=== PATIENT | male | born 1960 | race African-American/Black ===

== ENCOUNTER 2020-01-20 13:27 | Observation (INO) | payer SELFPAY ==
[2020-01-20 14:57] LABS: Troponin I Less than 0.010 ng/mL (< 0.028)
--- NOTE | 2020-01-20 16:06 | HP ---
PRIMARY CARE PHYSICIAN: Homer Rosario. CHIEF COMPLAINT: Chest pain and neck pain. HISTORY OF PRESENT ILLNESS: This is a 59-year-old male, who presented to the [facility] emergency room for chest pain. The patient reports that he initially had some neck pain started about a month ago. Last, over the few days, he could not move his neck or twisted and then it got better. He had no more symptoms until about 2 days ago. The patient on Sunday morning was smoking some crack. After coming down off the crack, he developed severe neck pain, bilateral, worse in the back than in the front, could not turn his head or moves in any direction at all. This was associated with left-sided chest pain. He had difficulty describing the type of pain but was persistent, constant, perhaps pressure in nature, did not radiate anywhere but covered the entire left side of his chest. It lasted all weekend and then resolved Sunday. He had lots of burping, but no nausea or vomiting with it. He did not have any diaphoresis. No shortness of breath. He did have some diarrhea over the weekend as well. The patient went into the emergency room today. His vital signs were stable. His EKG was normal and his troponins were negative. However, given his age, lack of previous healthcare and his cocaine abuse, he was transferred over here for observation and to risk stratify him. The patient denies any active chest pain right now, just the neck pain with any sort of movement. He also has a hard time lying down as this tends to make the neck pain worse as well. REVIEW OF SYSTEMS: CONSTITUTIONAL: No fevers. No chills. EYES: No double vision or blurred vision. ENT: He does have a little bit of runny nose, but no congestion. No sore throat. CARDIOVASCULAR: See HPI. No palpitations or racing heart. PULMONARY: No coughing, wheezing, or shortness of breath. GASTROINTESTINAL: He had burping, but no nausea or vomiting. No constipation. He had some diarrheal stools over the weekend just a few of them. No blood or mucus in them. No abdominal pain. GENITOURINARY: No dysuria or hematuria. MUSCULOSKELETAL: The patient has chronic low back pain. He has had some back surgery before. No other acute problem besides his neck. SKIN: No rashes or other lesions noted. NEUROLOGIC: No numbness, tingling, or focal weakness. PAST MEDICAL HISTORY: None. PAST SURGICAL HISTORY: Low back surgery. SOCIAL HISTORY: The patient does not smoke tobacco. He does smoke crack cocaine regularly. He does drink alcohol, but just occasionally and not daily. FAMILY HISTORY: There is COPD on the maternal side. No family history of early heart disease. ALLERGIES: NO KNOWN DRUG ALLERGIES. MEDICATIONS: No current medications. PHYSICAL EXAMINATION: VITAL SIGNS: Blood pressure 115/74, pulse 87, respirations 17, temperature 98.4, O2 saturation 100% on room air. GENERAL: This is a well-developed, well-nourished male, in no acute distress. HEENT: Pupils are equal, round, and reactive to light. Oropharynx clear without lesions, erythema, or exudate. NECK: Neck is quite stiff due to pain. Tender to palpation in the lateral musculature, where it attaches to the base of the skull. The cervical spine that was nontender to palpation. No lymphadenopathy. No thyroid nodules or enlargement. HEART: Regular rate and rhythm. No murmurs, rubs, or gallops. LUNGS: Clear to auscultation bilaterally. No wheezes, crackles, or rhonchi. ABDOMEN: Soft, nontender to palpation. Normoactive bowel sounds. No hepatosplenomegaly or other masses. EXTREMITIES: No clubbing, cyanosis, or edema. SKIN: No rashes or other lesions noted. NEUROLOGIC: Intact strength and sensation in all extremities. No facial droop. PSYCHIATRIC: Alert and oriented x3. Normal mood and affect. LABORATORY DATA: Troponin negative now x3. CBC is notable for a hemoglobin of 12, hematocrit of 40. The rest was normal. Complete metabolic panel is notable for a sodium of 135 and glucose of 106. The rest was normal. EKG done in the emergency room shows normal sinus rhythm with no ectopic beats. No ST-segment changes or T-wave inversions. Normal EKG. IMAGING STUDIES: Chest x-ray, I did review the chest x-ray done in the emergency room along with the radiologist's report. There are some chronic lung changes that are stable and mild cardiomegaly. There is also some bibasilar atelectasis or scar. No acute changes. CT angiography of the neck done in the emergency room is unremarkable. There is no arterial stenosis or occlusion. No evidence of dissection. There is a diminutive proximal left internal jugular vein, which could be chronic or congenital. ASSESSMENT: 1. Chest pain in the setting of cocaine abuse, likely this is secondary to cocaine, but it may indicate some underlying coronary artery disease given his age. We will monitor him overnight on telemetry and will have to do a stress test in the morning. If this is negative, then he will be discharged home to follow up with primary care doctor. 2. Neck pain. The patient appears to have a cervical neck spasm. He does not remember any trauma. This is likely positional from either sleeping or from whatever happened while he was high on the cocaine. No evidence of trauma. The CT of the neck was fine. This will likely improve with conservative care with muscle relaxants, pain medications, and for prolonged period of time, he can follow up with a neck surgeon. 3. Cocaine abuse. I did awake overnight counselor the patient about the need to stop abusing cocaine. 4. Mild cardiomegaly on the chest x-ray. The patient might benefit from an echocardiogram that can be done as an outpatient. No evidence of congestive failure at this time. 5. Deep venous thrombosis prophylaxis. The patient on sequential compression devices while in bed and encourage ambulation. 6. Gastrointestinal prophylaxis. The patient on Pepcid twice a day. CODE STATUS: I did discuss this with the patient. He is a full code. Should he be incapacitated, he states that his son will be his medical decision maker. His name is Edwin Nogueran. Job ID: [id number]
[2020-01-20] MEDS ORDERED: Ondansetron ODT 4 MG TAB PO PRN (16:34)
[2020-01-20] MEDS ORDERED: Acetaminophen 650 MG Suppository PR PRN (16:34)
[2020-01-20] MEDS ORDERED: Ondansetron PF 4 MG/2 ML Vial IVP PRN (16:34)
[2020-01-20] MEDS ORDERED: Guaifenesin DM 100-10/5 ML UDCUP PO PRN (16:34)
[2020-01-20] MEDS ORDERED: Cyclobenzaprine 10 MG TAB PO PRN (16:34)
[2020-01-20] MEDS ORDERED: HYDROcodone/Acetaminophen 5/325 mg Tablet PO PRN ×2 (16:34)
[2020-01-20] MEDS ORDERED: Senokot S 8.6-50 MG TAB PO PRN (16:34)
[2020-01-20] MEDS ORDERED: Nitroglycerin 0.4 MG TAB (25 Tab Bottle) PO PRN (16:34)
[2020-01-20 16:44] VITALS: BMI 19.4
[2020-01-20] MEDS ORDERED: Aspirin 325 mg Enteric Coated Tablet PO SCH (17:30)
[2020-01-20] MEDS: Famotidine 20 MG TAB PO SCH (19:24)
[2020-01-21 05:19] LABS: #Eosinphils 0.3 thou/uL (0.0-0.7); #Lymphocytes 1.2 thou/uL (1.20-3.40); #Monocytes 0.7 thou/uL (0.11-0.59); #Neutrophils 3.2 thou/uL (1.40-6.50); %Basophils 0.7 % (0.0-1.0); %Eosinophils 5.1 % (0.0-10.0); %Lymphocytes 21.9 % (21.0-51.0); %Monocytes 12.8 % (0.0-10.0); %Neutrophils 59.5 % (42.0-75.0); Hemoglobin 12.8 g/dL (14.0-18.0); Mean Corpuscular HGB CONC 32.7 g/dL (32.0-36.0); Mean Corpuscular Hemoglobin 31.4 pg (27.0-31.0); Mean Platelet Volume 8.5 fL (7.4-10.4); Platelet Count 184 thou/uL (130-400); RBC Distribution Width 11.9 % (11.5-14.5); Red Blood Cell (RBC) Count 4.07 mill/uL (4.70-6.10); White Blood Cell (WBC) Count 5.3 thou/uL (4.8-10.8)
[2020-01-21 05:43] LABS: Anion Gap 11 mmol/L (10-20); BUN (Urea Nitrogen) 14 mg/dL (8.4-25.7); Calc. Creatinine Clearance 74 mL/min (70-130); Calcium 9.4 mg/dL (7.8-10.44); Carbon Dioxide 29 mmol/L (22-29); Cardiac Risk 1.5 (Less than 4.5); Chloride 100 mmol/L (98-107); Cholesterol 175 mg/dl (< 200 Desired); Estimated GFR-MDRD Greater than 90; Glucose 97 mg/dL (70-105); HDL Cholesterol 117 mg/dL (>60 Neg Risk); LDL Cholesterol, Calculated 50 mg/dL; Potassium 4.8 mmol/L (3.5-5.1); Sodium 135 mmol/L (136-145); Triglycerides 40 mg/dL (Less than 150)
[2020-01-21] MEDS: Acetaminophen 325 MG TAB PO PRN ×2 (08:12→20:11)
[2020-01-21] MEDS: Famotidine 20 MG TAB PO SCH ×2 (08:13→20:11)
[2020-01-21] MEDS: Aspirin 325 mg Enteric Coated Tablet PO SCH (08:13)
[2020-01-21] MEDS ORDERED: Sodium Chloride 0.9% 1,000 ML IV SCH ×2 (10:15)
[2020-01-21 10:48] LABS: Troponin I Less than 0.010 ng/mL (< 0.028)
--- NOTE | 2020-01-21 12:09 | NM ---
CARDIAC SPECT: CLINICAL HISTORY: 59-year-old male with chest pain. TECHNIQUE: A rest-only myocardial perfusion scan was performed following the intravenous administration of 10.3 mCi technetium-99m sestamibi. FINDINGS: There is a defect in the inferior wall suspicious for scarring. IMPRESSION: Limited exam as above. POS: PHAN
[2020-01-21 12:33] LABS: Amphetamine Not Detected (NotDetected); Barbiturates Screen Not Detected (NotDetected); Benzodiazepine Screen Not Detected (NotDetected); Cocaine Metabolite Screen Not Detected (NotDetected); Medtox Control Line Valid? VALID (VALID); Medtox Reader # READER 4; Methadone Not Detected (NotDetected); Methamphetamine Not Detected (NotDetected); Opiate Screen Detected (NotDetected); Oxycodone Screen Not Detected (NotDetected); Phencyclidine (PCP) Not Detected (NotDetected); THC/Cannabinoid Screen Not Detected (NotDetected); Tricyclic Screen Not Detected (NotDetected)
--- NOTE | 2020-01-21 14:46 | PDOC.HOSPP ---
- Subjective Encounter Date: 01/21/20 Encounter Time: 14:44 Subjective: Patient seen and examined for CP after Cocaine abuse. Neck pain gradually improving. No other complaints. Stress test not completed due to hypotension. - Objective Vital Signs & Weight: Vital Signs (12 hours) Temp Pulse Resp BP BP BP BP 01/21/20 11:25 97.6 F 16 01/21/20 10:51 68 120/84 117/80 01/21/20 10:25 60 115/62 01/21/20 08:40 01/21/20 07:50 97.6 F 83 18 101/69 01/21/20 05:07 98.5 F 74 16 108/76 BP Pulse Ox 01/21/20 11:25 96 01/21/20 10:51 127/69 01/21/20 10:25 01/21/20 08:40 95 01/21/20 07:50 94 L 01/21/20 05:07 97 Weight Weight 131 lb 12.8 oz I&O: 01/20/20 01/21/20 01/22/20 06:59 06:59 06:59 Intake Total 640 Output Total 100 Balance 540 Result Diagrams: 01/21/20 05:02 01/21/20 05:02 Radiology Reviewed by me: Yes (CXR - No infiltrate) EKG Reviewed by me: Yes (Tele SR) Hospitalist ROS - Review of Systems Respiratory: denies: cough, dry, shortness of breath, hemoptysis, SOB with excertion, pleuritic pain, sputum, wheezing, other Gastrointestinal: denies: nausea, vomiting, abdominal pain, diarrhea, constipation, melena, hematochezia, other - Medication Medications: Active Medications Generic Name Dose Route Start Last Admin Trade Name Freq PRN Reason Stop Dose Admin Acetaminophen 650 mg 01/20/20 16:34 01/21/20 08:12 Tylenol PO 650 mg Q4H PRN Administration Headache/Fever/Mild Pain (1-3) Hydrocodone Bitart/Acetaminophen 2 tab 01/20/20 16:34 01/20/20 19:24 [place] 5/325 PO 2 tab Q4H PRN Administration Severe Pain (7-10) Aspirin 325 mg 01/21/20 09:00 01/21/20 08:13 Ecotrin PO 325 mg DAILY ARVIN Administration Famotidine 20 mg 01/20/20 21:00 01/21/20 08:13 Pepcid PO 20 mg BID ARVIN Administration Sodium Chloride 1,000 mls @ 125 mls/hr 01/21/20 10:15 01/21/20 12:11 Normal Saline 0.9% IV 1,000 mls .Q8H ARVIN Administration - Exam General Appearance: NAD Neck: supple, no JVD Heart: RRR, no gallops, no rubs, normal peripheral pulses Respiratory: CTAB, no wheezes, no rales, no ronchi Gastrointestinal: soft, non-tender, non-distended, normal bowel sounds Extremities: no cyanosis, no clubbing, no edema Neurological: no new deficit Psychiatric: normal affect, A&O x 3 Hosp A/P - Plan DVT proph w/SCDs Cocaine induced CP Musculoskeletal neck pain Hyponatremia Anemia suspected due to nutritional def Hypotension - resolved PLAN: Orthostatic negative Check Echo Add low dose ASA Drug cessation Stress test pending
[2020-01-21] MEDS: Cyclobenzaprine 10 MG TAB PO SCH ×2 (15:30→20:11)
[2020-01-21] MEDS: Sodium Chloride 0.9% 1,000 ML IV SCH (15:30)
[2020-01-22] MEDS: Sodium Chloride 0.9% 1,000 ML IV SCH (04:06)
[2020-01-22] MEDS: Aspirin 325 mg Enteric Coated Tablet PO SCH (08:13)
[2020-01-22] MEDS: Famotidine 20 MG TAB PO SCH (08:13)
[2020-01-22] MEDS: Acetaminophen 325 MG TAB PO PRN (08:14)
[2020-01-22] MEDS: Cyclobenzaprine 10 MG TAB PO SCH ×2 (08:14→14:51)
--- NOTE | 2020-01-22 14:38 | NM ---
EXAM: Nuclear Medicine Cardiac SPECT with EF and wall motion: HISTORY: Chest pain Protocol: Exam was performed using adenosine protocol. The patient is injected with 29.3 millicuries of technetium 99m sestamibi intravenously for stress im ages. The patient is injected with 10.3 millicuries of technetium 99 sestamibi intravenously for resting im ages. Multiple SPECT images are performed in the short axis, vertical long axis, and horizontal long axis. FINDINGS: No scan evidence for infarct or ischemia. TID:1.17 LHR:0.33 EDV:129 mL EF:61% Wall motion:Normal IMPRESSION: Unremarkable cardiac SPECT with EF and wall motion
[2020-01-22 15:44] VITALS: BP 108/62; TEMP 98.5
[2020-01-22] MEDS ORDERED: ADENOSINE 60 MG/20 ML VIAL ONE (16:15)
--- NOTE | 2020-01-23 11:57 | DIS ---
DATE OF ADMISSION: 01/20/2020 DATE OF DISCHARGE: 01/22/2020 DISCHARGE DISPOSITION: Home. Follow up with primary care physician at [facility] in 1 week. The patient denies any drug allergies. The patient was seen on the day of discharge. Denies any new complaints. No chest pain, shortness of breath, or palpitations reported. BRIEF HOSPITAL COURSE: The patient is a 59-year-old male, who presented to the emergency room with an episode of chest discomfort that started after smoking crack cocaine. Please refer to the history and physical for further details. The patient was admitted to the telemetry unit with a diagnosis of chest discomfort, rule out acute coronary syndrome. His serial troponins remain negative. He became hypotensive during the stress test. For this reason, the stress test was postponed to next day. His blood pressure remained stable. He has been off IV fluids for last 24 hours. His blood pressure on the day of discharge was 108/62 and 126/82. His stress test was negative for reversible ischemia. Lifestyle modification was emphasized. The patient also complained of significant musculoskeletal chest pain that gets worse on movement. He was advised to follow up with primary care physician. Prescription for Flexeril was provided. DIAGNOSTIC TEST: 1. Cardiolite stress test was negative for reversible ischemia. Echocardiogram showed left ventricular ejection fraction of greater than 65% with mild mitral regurgitation, mild tricuspid regurgitation. 2. CT angiogram of the neck done in the emergency room was negative for hemodynamically significant stenosis. He also had some chronic or congenital finding in the proximal left internal jugular vein of unclear clinical significance. Chest x-ray showed chronic lung changes. FINAL DIAGNOSES: 1. Chest discomfort, acute coronary syndrome ruled out. Probably cocaine induced chest pain. 2. Musculoskeletal neck pain. 3. Hyponatremia. 4. Anemia suspected due to nutritional deficiency. 5. Hypotension during the stress test, resolved. The patient understands the above plan of care. Job ID: [id number]
--- NOTE | 2020-01-24 18:15 | EKG ---
Test Reason : Blood Pressure : / mmHG Vent. Rate : 086 BPM Atrial Rate : 086 BPM P-R Int : 144 ms QRS Dur : 082 ms QT Int : 336 ms P-R-T Axes : -17 051 012 degrees QTc Int : 402 ms Normal sinus rhythm Normal ECG Confirmed by DARREN SALMERON, MIGUEL ANGEL Archibald ([id number]), associate editor BERNIE PURVIS ([id number]) on 01/24/2020 6:15:13 PM Referred By: Confirmed By:MIGUEL ANGEL BANKS MD
== END 2020-01-22 16:36 | disposition home or self-care (01) ==
LOC: ERS 13:27 → 2SW 16:32
PROVIDERS: ADMIT Emergency Medicine; ATTEND Internal Medicine
DX: F14.188 Cocaine abuse with other cocaine-induced disorder (principal); R07.89 Other chest pain; M54.2 Cervicalgia; I25.10 Atherosclerotic heart disease of native coronary artery without angina pectoris; I51.7 Cardiomegaly; I10 Essential (primary) hypertension; E87.1 Hypo-osmolality and hyponatremia
CPT/HCPCS: 36415; 78451; 78452; 80048; 80061; 80306; 83735; 84484; 85025; 93005; 93017; 93306; 94760; 96360; 96361; A9500; G0378; J0153